=== PATIENT | male | born 1950 | race Caucasian/White ===

== ENCOUNTER 2023-11-23 11:44 | Emergency (ER) | payer MEDICARE, OTHER ==
[~2023-11-23] VITALS: Ht 180.3 cm; Wt 74.0 kg
[2023-11-23] MEDS ORDERED: AVAPRO300 MG PO ×2 (11:55→12:11)
[2023-11-23] MEDS ORDERED: VENTOLIN HFA18 GM INH (12:11)
[2023-11-23] MEDS ORDERED: LOSARTAN POTASSIUM 100 MG TAB PO ONE (12:15)
[2023-11-23 12:21] LABS: BASOPHILS 0.7 % (0-2); EOSINOPHILS 1.8 % (0-6); HEMATOCRIT 43.2 % (35.0-50.0); HEMOGLOBIN 14.5 g/dL (12.0-18.0); LYMPHOCYTES 18.1 % (24-44); MCH 34.8 (27-36); MCHC 33.6 g/dl (30-36); MCV 103.8 fl (81-99); NEUTROPHILS 69.4 % (39-80); PLATELET COUNT 250 K/uL (140-440); RBC 4.17 M/ul (4.3-5.7); RDW 15.8 (10.5-15.0)
[2023-11-23 12:36] LABS: ALBUMIN 3.4 g/dL (3.4-5.0); ANION GAP 7.5 (7-21); BILIRUBIN, TOTAL 0.5 ng/dL (0.2-1.0); BUN/CREATININE RATIO 21.27 (6.0-28.6); CALCIUM 9.3 mg/dL (8.5-10.1); CREATININE, SERUM 0.94 mg/dL (0.70-1.30); POTASSIUM 4.5 mmol/L (3.5-5.1); PROTEIN, TOTAL 6.8 g/dL (6.4-8.2)
[2023-11-23 13:14] VITALS: BP 154/132
== END 2023-11-23 13:14 | disposition home or self-care (01) ==
LOC: ED 11:44
PROVIDERS: Emergency Medicine
DX: I10 Essential (primary) hypertension (principal); Z79.899 Other long term (current) drug therapy
CPT/HCPCS: 36415; 80053; 85025; 99282